=== PATIENT | female | born 1975 | race Caucasian/White ===

== ENCOUNTER 2024-03-02 13:30 | Outpatient (AMB) | payer OTHER, SELFPAY ==
--- NOTE | 2024-03-02 13:42 | A.OFFPC_ITS ---
Vital Signs 03/02/24 13:45 Height 5 ft 5.75 in Weight 149 lb BMI 24.2 BP 82/60 L Blood Pressure Location Lt brachial Position Sitting Respiration 14 Pulse 57 Pulse Source Pulse Oximeter Temp 97.6 F Temp Source Oral Pulse Oximetry (%) 99 Oxygen Delivery Method Room Air Intake Visit Reasons: est care Intake Note: New patient visit Tobacco use date assessed: 03/02/24 Dental Screening Dental Screen Date: 03/02/24 Did you have a dental visit in the last 12 months?: Yes Did you have a dental problem in the last 6 months where you did not have access to dental care?: No Was dental information given to patient?: Patient has dentist HPI HPI Comments History of Present Illness Details 48 year old female with a past medical h istory of anxiety, allergic rhinitis, orthostasis presenting to [facility] CV: Follows with cardiology. History of orthostasis. Denies chest pain, shortness of breath. Allergic rhinitis stable on antihistamine. Cats, seasonal allergies. Colonoscopy: Done February 2023-repeat in 5 years. 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 Maternal Grandfather Colon cancer Social History (Updated 03/02/24 @ 13:43 by Kirstin Lee CMA) Housing: House Patient Tobacco Use Status: Former Tobacco user Cigarettes Per Day: 5 Years Smoked: 4 college years e-Cigarette/Vaping Use: Never Used Second Hand Smoke Exposure: No service: No Current occupational status: employed Current occupation: [employer] Current occupational exposures/hazards: No Cognitive needs: No Hearing needs: No Vision needs: No Questionnaire PHQ-9 Over the last 2 weeks, how often have you been bothered by any of the following problems? 1. Little interest or pleasure in doing things: not at all 2. Feeling down, depressed, or hopeless: not at all 3. Trouble falling or staying asleep, or sleeping too much: not at all 4. Feeling tired or having little energy: not at all 5. Poor appetite or overeating: not at all 6. Feeling bad about yourself - or that you are a failure or have let yourself or your family down: not at all 7. Trouble concentrating on things, such as reading the newspaper or watching television: not at all 8. Moving or speaking so slowly that other people could have noticed. Or the opposite - being so fidgety or restless that you have been moving around a lot more than usual: not at all 9. Thoughts that you would be better off or of hurting yourself in some way: not at all Total score: 0 Depression Screening Interpretation: Negative (neg) Depression Screening Done: Yes 18923 - PHQ-9 Billing: Yes Source: Developed by Drs. Juan Boykin, Shellie Raygoza, Irvin Villeda and colleagues, with an educational melvin from [employer]. Thrive Questionnaire Date Thrive assessed: 03/02/24 I am a: Patient What is your living situation today?: I have a steady place to live Within the past 12 months, did the food you bought not last and you didn't have the money to get more?: Never true Within the past 12 months, did you worry whether your food would run out before you got money to buy more?: Never true Do you have trouble paying for medicines?: No Do you have trouble getting transportation to medical appointments?: No Do you have trouble paying your heating and electricity bill?: No Do you have trouble taking care of your child, family member or friend?: No Do you have trouble with day-to-day activities such as bathing, preparing meals, shopping, managing finances, etc.?: No Are you currently unemployed and looking for a job?: No Are you interested in more education?: No Please select the resources that you would like help with: None Currently or been in a relationship where the following occur: no concerns reported THRIVE Score: 0 AUDIT C Alcohol Use Questionnaire (AUDIT-C) 1. How often do you have a drink containing alcohol?: Never 3. How often do you have six or more drinks on one occasion?: Never Total Score: 0 GUILLERMO-7 AMB Questionnaire GUILLERMO-7 Date GUILLERMO - 7 assessed: 03/02/24 Feeling nervous, anxious, or on edge: 0 = Not at all Not being able to stop or control worryin = Not at all Worrying too much about different things: 0 = Not at all Trouble relaxin = Not at all Being so restless that it is hard to sit still: 0 = Not at all Becoming easily annoyed or irritable: 0 = Not at all Feeling afraid as if something awful might happen: 0 = Not at all Total GUILLERMO-7 score (0-4 normal; 5-9 mild; 10-14 moderate; 15-21 severe): 0 Source: Developed by Drs. Juan Boykin, Shellie Raygoza, Irvin Villeda and colleagues, with an educational melvin from [employer]. GUILLERMO-7 Assessment Billing GUILLERMO-7 Assessment Tool: GUILLERMO-7 Assessment 04991 Review of Systems Const Details: see hpi Physical exam (Primary Care) Vital Signs: Last Vital Signs Temp 97.6 F 03/02/24 13:45 Pulse 57 03/02/24 13:45 Resp 14 03/02/24 13:45 BP 82/60 L 03/02/24 13:45 Pulse Ox 99 03/02/24 13:45 Oxygen Delivery Method Room Air 03/02/24 13:45 PHYSICAL EXAM: GENERAL: Alert and oriented x 3. NAD EYES: EOMI. Anicteric. HENT: Moist mucous membranes. No scleral icterus. No cervical lymphadenopathy. LUNGS: Clear to auscultation bilaterally. CARDIOVASCULAR: Regular rate and rhythm. No murmur. No JVD. ABDOMEN: Soft, non-tender +bs EXTREMITIES: No edema. Non-tender. SKIN: No rashes or lesions. Warm. NEUROLOGIC: No focal neurological deficits. CN II-XII grossly intact PSYCHIATRIC: Cooperative. Appropriate mood and affect BMI result Body Mass Index 24.2 Tobacco/Smoking Status: Tobacco use Status Tobacco use date assessed 03/02/24 03/02/24 13:47 Patient Tobacco Use Status Former Tobacco user 03/02/24 14:09 e-Cigarette/Vaping Use Never Used 03/02/24 13:47 PHQ-9: PHQ-9 Score PHQ-9: Total score 0 03/02/24 14:07 Depression Screening Interpretation: Negative (neg) Thrive Assessment: Date of Thrive Assessment Date Thrive assessed 03/02/24 03/02/24 14:07 Currently or been in a relationship where the following occur: no concerns reported Assessment and Plan Assessment & Plan (1) Encounter to establish care: Code(s): Z76.89 - Persons encountering health services in other specified circumstances Plan: 48 y/o to establish care. pmhx, social, surgical and family history reviewed (2) Syncope: Code(s): R55 - Syncope and collapse Qualifiers: Syncope type: vasovagal syncope Qualified Code(s): R55 - Syncope and collapse (3) Rhinitis: Code(s): J31.0 - Chronic rhinitis Qualifiers: Allergic rhinitis seasonality: seasonal Allergic rhinitis trigger: unspecified Rhinitis type: allergic Qualified Code(s): J30.2 - Other seasonal allergic rhinitis (4) Orthostatic hypotension: Comment: stable off fludrocortisone Code(s): I95.1 - Orthostatic hypotension Coding Level of Care Code Tele New Pt Level 4 (04598) Diagnoses Encounter to establish care Z76.89 Vasovagal syncope R55 Syncope type: vasovagal syncope Seasonal allergic rhinitis, unspecified trigger J30.2 Allergic rhinitis seasonality: seasonal Allergic rhinitis trigger: unspecified Rhinitis type: allergic Orthostatic hypotension I95.1 Additional Codes GUILLERMO-7 Assessment Billing - GUILLERMO-7 Assessment Tool: GUILLERMO-7 Assessment [id number] ([id number])
[2024-03-02 13:45] VITALS: BP 82/60; PULSE 57; RESP 14; TEMP 36.4; O2SAT 99; BMI 24.2
== END 2024-03-02 14:18 | disposition home or self-care (01) ==
PROVIDERS: Visit Provider Internal Medicine
DX: R55 Syncope and collapse (principal); J30.2 Other seasonal allergic rhinitis; I95.1 Orthostatic hypotension; Z76.89 Persons encountering health services in other specified circumstances
CPT/HCPCS: 99204